=== PATIENT | male | born 1980 ===

== ENCOUNTER 2016-08-21 23:54 | Emergency (ER) | payer SELFPAY ==
[2016-08-22] VITALS: PULSE 70; RESP 16; TEMP 98; O2SAT 96
--- NOTE | 2016-08-22 00:13 | ED PDOC ---
HPI: General Adult Time Seen by Provider: 08/22/16 00:01 Chief Complaint (Nursing): Medical Clearance Chief Complaint (Provider): Asthma History Per: Patient History/Exam Limitations: no limitations Have you had recent travel within the past 21 days to any of the following countries: [place], [place], [place] or [place]?: No Additional Complaint(s): Pt concerned that his asthma is going to act up while in long term. Pt denies SOB or chest pain at this time. Pt states that he has no SI/HI. Denies psychiatric history. Pt is cooperative in ER. Pt also reports mild headache and would like some tylenol. Headache frontal region. Past Medical History Reviewed: Historical Data, Nursing Documentation, Vital Signs Vital Signs: Last Vital Signs Temp 98.0 F 08/21/16 23:56 Pulse 70 08/21/16 23:56 Resp 16 08/21/16 23:56 BP 146/96 H 08/21/16 23:56 Pulse Ox 96 08/22/16 00:15 - Medical History PMH: Asthma - Surgical History Surgical History: No Surg Hx - Family History Family History: States: No Known Family Hx - Living Arrangements Living Arrangements: With Family - Home Medications Home Medications: Ambulatory Orders Medication Instructions Recorded Albuterol HFA [Ventolin HFA 90 1 puff IH BID PRN #1 unit 08/22/16 mcg/actuation (8 g)] - Allergies Allergies/Adverse Reactions: Allergies Allergy/AdvReac Type Severity Reaction Status Date / Time No Known Allergies Allergy Verified 08/21/16 23:56 Review of Systems ROS Statement: Except As Marked, All Systems Reviewed And Found Negative Respiratory: Positive for: Other Physical Exam - Reviewed Nursing Documentation Reviewed: Yes Vital Signs Reviewed: Yes - Physical Exam Appears: Positive for: Well, Non-toxic, No Acute Distress Head Exam: Positive for: ATRAUMATIC, NORMAL INSPECTION, NORMOCEPHALIC Skin: Positive for: Normal Color, Warm, DRY Eye Exam: Positive for: Normal appearance ENT: Positive for: Normal ENT Inspection Neck: Positive for: Normal, Painless ROM Cardiovascular/Chest: Positive for: Regular Rate, Rhythm Respiratory: Positive for: Normal Breath Sounds. Negative for: Accessory Muscle Use, Respiratory Distress Gastrointestinal/Abdominal: Positive for: Normal Exam, Bowel Sounds, Soft Back: Positive for: Normal Inspection Extremity: Positive for: Normal ROM Neurologic/Psych: Positive for: Alert, ell teacher II-XII, Oriented, Gait - ECG O2 Sat by Pulse Oximetry: 96 Pulse Ox Interpretation: Normal Disposition - Clinical Impression Clinical Impression: Asthma - Patient ED Disposition Is Patient to be Admitted: No Counseled Patient/Family Regarding: Diagnosis, Need For Followup, Rx Given - Disposition Referrals: [facility] [Outside] Disposition: Routine/Home Disposition Time: 00:11 Condition: GOOD Additional Instructions: Pt is medically and psychiatrically stable for incarceration Prescriptions: Albuterol HFA [Ventolin HFA 90 mcg/actuation (8 g)] 1 puff IH BID PRN #1 unit PRN Reason: Shortness Of Breath Instructions: Asthma (ED)
[2016-08-22] MEDS ORDERED: Albuterol-Ipratrop 3 mg / 0.5 (3 ml) UD INH STA (00:14)
[2016-08-22] MEDS ORDERED: Albuterol-Ipratrop 3 mg / 0.5 (3 ml) UD ONE (00:16)
[2016-08-22 01:57] VITALS: BP 138/84
== END 2016-08-22 00:51 ==
LOC: H.ER 23:54
DX: J45.909 Unspecified asthma, uncomplicated (principal)